=== PATIENT | female | born 1995 | race Caucasian/White ===

== ENCOUNTER → 2018-07-14 17:28 | Outpatient (CLI) | payer OTHER, SELFPAY ==
[2018-07-14 18:02] LABS: Absolute Lymphocyte Count 3.86 X10^3/ul (0.83-4.51); Absolute Neutrophil Count 10.7 X10^3/uL (2.0-7.7); Basophil# 0.02 X10^3/uL; Basophil% 0.1 % (0-1); Eosinophil# 0.05 X10^3/uL; Eosinophils% 0.3 % (0-5); Hematocrit 36.5 % (37-47); Hemoglobin 12.4 g/dl (12.0-15.0); Lymphocyte # 3.86 X10^3/ul (4.0); Lymphocyte % 24.9 % (19-41); Mean Corpuscular Hgb 30.6 pg (27.0-32.0); Mean Corpuscular Volume 90.1 fL (81-99); Mean Platelet Vol. 9.4 fl (6.2-12.0); Monocyte# 0.86 X10^3/uL; Monocyte% 5.5 % (0-10); Neutrophil # 10.67 X10^3/uL (2.7-7.7); Neutrophil % 68.9 % (47-70); POSITIVE COUNT NO; POSITIVE DIFFERENTIAL NO; POSITIVE MORPHOLOGY NO; Platelet Count 310 K/mm3 (150-450); RBC Distribution Width SD 39.3 fl (35.1-43.9); Red Blood Count 4.05 M/mm3 (4.2-5.4); White Blood Count 15.5 K/mm3 (4.4-11.0)
[2018-07-14 20:09] LABS: Chlamydia Trachomatis by PCR Negative (Negative); Neisserai gonorrhoeae by PCR Negative (Negative); Probe Check PASS; Sample Adequacy Control PASS; Specimen Processing Control PASS
[2018-07-15 02:29] LABS: Rapid Plasmin Reagin (RPR) NONREACTIVE (NONREACTIVE)
[2018-07-15 15:20] LABS: HIV - WCH Non-Reactive (Nonreactive); Rubella IgG 57.1 IU/mL
[2018-07-16 13:35] LABS: HEPATITIS B SURFACE AG Negative (Negative)
[2018-07-20 11:28] LABS: HPV Reflexed? NOT INDICATED
== END ==
PROVIDERS: Visit Provider Obstetrics & Gynecology
DX: Z34.90 Encounter for supervision of normal pregnancy, unspecified, unspecified trimester (principal); Z12.4 Encounter for screening for malignant neoplasm of cervix
CPT/HCPCS: 85025; 86592; 86703; 86762; 86850; 86900; 87086; 87088; 87340; 87491; 87591; 88175; G0145

== ENCOUNTER → 2018-10-04 16:09 | Outpatient (CLI) | payer BC, MEDICAID, SELFPAY ==
[2018-10-04 15:18] VITALS: BMI 31.2
[2018-10-08 03:09] LABS: AFP MoM Value 1.17 (.); AFP Value-EIA 48.1 ng/mL (.); Comment Report (.); DIA MoM Value 0.91 (.); DIA Value-EIA 145.12 pg/mL (.); DSR (By Age) 493 (.); DSR (Second Trimester) 7023 (.); Gestational Age 18.4 WEEKS (.); Insulin Dep Diabetes No (.); Maternal Age At EDD 32.4 yr (.); hCG Value 16608 mIU/mL (.)
== END ==
PROVIDERS: Referring Provider Obstetrics & Gynecology; Visit Provider Obstetrics & Gynecology
DX: Z36.9 Encounter for antenatal screening, unspecified (principal)
CPT/HCPCS: 82105; 82677; 84702; 86336

== ENCOUNTER → 2018-12-09 13:56 | Outpatient (CLI) | payer MEDICAID, SELFPAY ==
[2018-12-09 13:32] VITALS: BMI 31.2
[2018-12-09 16:02] LABS: Absolute Lymphocyte Count 2.14 X10^3/ul (0.83-4.51); Basophil# 0.02 X10^3/uL; Basophil% 0.2 % (0-1); Eosinophil# 0.05 X10^3/uL; Eosinophils% 0.5 % (0-5); Hematocrit 35.9 % (37-47); Hemoglobin 11.6 g/dl (12.0-15.0); Lymphocyte # 2.14 X10^3/ul (4.0); Lymphocyte % 19.3 % (19-41); Mean Corp Hgb Conc 32.3 g/gl (32-36); Mean Corpuscular Hgb 29.9 pg (27.0-32.0); Mean Corpuscular Volume 92.5 fL (81-99); Mean Platelet Vol. 10.2 fl (6.2-12.0); Monocyte# 0.73 X10^3/uL; Monocyte% 6.6 % (0-10); Neutrophil # 8.01 X10^3/uL (2.7-7.7); Neutrophil % 72.1 % (47-70); Platelet Count 330 K/mm3 (150-450); RBC Distribution Width CV 12.8 % (11.6-14.6); RBC Distribution Width SD 42.2 fl (35.1-43.9); Red Blood Count 3.88 M/mm3 (4.2-5.4); White Blood Count 11.1 K/mm3 (4.4-11.0)
[2018-12-09 16:03] LABS: POSITIVE COUNT NO; POSITIVE DIFFERENTIAL NO; POSITIVE MORPHOLOGY NO
[2018-12-09 16:32] LABS: Glucose Challenge Gest 1H 50g 129 mg/dL (70-140)
== END ==
PROVIDERS: Referring Provider Obstetrics & Gynecology; Visit Provider Obstetrics & Gynecology
DX: Z34.90 Encounter for supervision of normal pregnancy, unspecified, unspecified trimester (principal)
CPT/HCPCS: 36415; 82950; 85025

== ENCOUNTER → 2019-02-07 17:31 | Outpatient (CLI) | payer MEDICAID, SELFPAY ==
[2019-02-07 16:49] VITALS: BMI 31.2
== END ==
PROVIDERS: Referring Provider Obstetrics & Gynecology; Visit Provider Obstetrics & Gynecology
DX: Z34.93 Encounter for supervision of normal pregnancy, unspecified, third trimester (principal); Z3A.36 36 weeks gestation of pregnancy
CPT/HCPCS: 87077; 87081; 87186

== ENCOUNTER 2019-02-21 16:50 | Outpatient (CLI) | payer MEDICAID, SELFPAY ==
[2019-02-21 16:22] VITALS: BMI 31.2
[2019-02-21 17:09] VITALS: BMI 35.4
--- NOTE | 2019-02-21 17:21 | NURSING ---
pt has had headaches on and off this week, but has not felt the need to take medication for any of them. pt does not have a headache at this time
[2019-02-21 17:44] LABS: Hematocrit 34.6 % (37-47); Hemoglobin 10.9 g/dl (12.0-15.0); Mean Corp Hgb Conc 31.5 g/gl (32-36); Mean Corpuscular Hgb 26.8 pg (27.0-32.0); Mean Platelet Vol. 10.5 fl (6.2-12.0); Platelet Count 262 K/mm3 (150-450); RBC Distribution Width CV 13.7 % (11.6-14.6); RBC Distribution Width SD 42.4 fl (35.1-43.9); Red Blood Count 4.07 M/mm3 (4.2-5.4); Scan Indicated on CBC? Y/N NO; White Blood Count 8.1 K/mm3 (4.4-11.0)
[2019-02-21 17:45] LABS: Protein, Urine (Random) 31.4 mg/dL (<11.9); Protein:Creat Ratio 238 mg/g CRE (0-200)
[2019-02-21 18:15] LABS: AST(SGOT) 21 U/L (15-37); Alanine Aminotransfer ALT/SGPT 15 U/L (13-56); Creatinine, Serum 0.76 mg/dL (0.55-1.02); EST Glomerular Filtration Rate 102 mL/min (>60); Est Glom Filt Rate - Afr Amer 123 mL/min (>60); Estimated Creatinine Clearance 91.83 ml/min; Uric Acid 4.4 mg/dL (2.6-6.0)
[2019-02-21 18:51] LABS: Prothrombin Time (Protime)PT. 12.9 SECONDS (11.7-14.9)
[2019-02-21 18:52] LABS: Partial Thromboplast Time 26.9 Seconds (24.1-36.2)
--- NOTE | 2019-02-22 03:59 | OB.TRI.PN_ITS ---
Progress Notes Date of Service: 02/21/19 Progress Note: NST evaluation secondary to elevated blood pressure in the office Patient denies any headaches blurry vision but had borderline elevated blood pressures in the office initially borderline elevated blood pressures upon presentation to labor and delivery but repeat blood pressures are all within normal limits heart tones 145 moderate variability reactive no decelerations category 1 tracing [place]: Irregular contractions Assessment and plan: Elevated blood pressures Reactive NST reassuring status normal labs and normal blood pressures negative proteinuria follow-up in the office at the end of the week for a blood pressure check Laboratory Studies: Laboratory Tests 02/21/19 02/21/19 02/21/19 Range/Units 17:20 17:20 17:20 WBC 8.1 (4.4-11.0) K/mm3 RBC 4.07 L (4.2-5.4) M/mm3 Hgb 10.9 L (12.0-15.0) g/dl Hct 34.6 L (37-47) % MCV 85.0 (81-99) fL MCH 26.8 L (27.0-32.0) pg MCHC 31.5 L (32-36) g/gl RDW 13.7 (11.6-14.6) % RDW Differential 42.4 (35.1-43.9) fl Plt Count 262 (150-450) K/mm3 MPV 10.5 (6.2-12.0) fl PT 12.9 (11.7-14.9) SECONDS INR 1.0 APTT 26.9 (24.1-36.2) Seconds Creatinine 0.76 (0.55-1.02) mg/dL Estim Creat Clear Calc 91.83 ml/min Est GFR (MDRD) Af Amer 123 (>60) mL/min Est GFR (MDRD) Non-Af 102 (>60) mL/min Uric Acid 4.4 (2.6-6.0) mg/dL AST 21 (15-37) U/L ALT 15 (13-56) U/L U Random Total Protein (<11.9) mg/dL Urine Creatinine (NO RANGE EST.) mg/dL Protein/Creatinin Ratio (0-200) mg/g CRE 02/21/19 Range/Units 17:00 WBC (4.4-11.0) K/mm3 RBC (4.2-5.4) M/mm3 Hgb (12.0-15.0) g/dl Hct (37-47) % MCV (81-99) fL MCH (27.0-32.0) pg MCHC (32-36) g/gl RDW (11.6-14.6) % RDW Differential (35.1-43.9) fl Plt Count (150-450) K/mm3 MPV (6.2-12.0) fl PT (11.7-14.9) SECONDS INR APTT (24.1-36.2) Seconds Creatinine (0.55-1.02) mg/dL Estim Creat Clear Calc ml/min Est GFR (MDRD) Af Amer (>60) mL/min Est GFR (MDRD) Non-Af (>60) mL/min Uric Acid (2.6-6.0) mg/dL AST (15-37) U/L ALT (13-56) U/L U Random Total Protein 31.4 H (<11.9) mg/dL Urine Creatinine 132.00 (NO RANGE EST.) mg/dL Protein/Creatinin Ratio 238 H (0-200) mg/g CRE
== END 2019-02-21 19:00 | disposition home or self-care (01) ==
LOC: WPOUT 16:55 → WP 16:55
PROVIDERS: Referring Provider Obstetrics & Gynecology; Visit Provider Obstetrics & Gynecology
DX: O26.899 Other specified pregnancy related conditions, unspecified trimester (principal); R03.0 Elevated blood-pressure reading, without diagnosis of hypertension; Z3A.00 Weeks of gestation of pregnancy not specified
CPT/HCPCS: 36415; 59025; 59050; 82565; 82570; 84156; 84450; 84460; 84550; 85027; 85610; 85730; 99218; G0378

== ENCOUNTER 2019-02-24 16:40 | Inpatient (IN) | payer MEDICAID, SELFPAY ==
[2019-02-24 13:34] VITALS: BMI 35.4
[2019-02-24 14:09] LABS: Protein, Urine (Random) 40.6 mg/dL (<11.9); Protein:Creat Ratio 205 mg/g CRE (0-200)
[2019-02-24 14:37] VITALS: BMI 35.5
[2019-02-24 14:37] LABS: Hematocrit 33.4 % (37-47); Hemoglobin 10.7 g/dl (12.0-15.0); Mean Corpuscular Hgb 27.2 pg (27.0-32.0); Mean Corpuscular Volume 84.8 fL (81-99); Mean Platelet Vol. 10.7 fl (6.2-12.0); Platelet Count 246 K/mm3 (150-450); RBC Distribution Width CV 13.7 % (11.6-14.6); RBC Distribution Width SD 42.5 fl (35.1-43.9); Red Blood Count 3.94 M/mm3 (4.2-5.4); White Blood Count 7.8 K/mm3 (4.4-11.0)
[2019-02-24 14:38] LABS: Scan Indicated on CBC? Y/N NO
[2019-02-24 14:49] LABS: AST(SGOT) 21 U/L (15-37); Alanine Aminotransfer ALT/SGPT 16 U/L (13-56); Creatinine, Serum 0.68 mg/dL (0.55-1.02); EST Glomerular Filtration Rate 115 mL/min (>60); Est Glom Filt Rate - Afr Amer 139 mL/min (>60); Estimated Creatinine Clearance 102.64 ml/min; Uric Acid 5.2 mg/dL (2.6-6.0)
[2019-02-24 14:52] LABS: Prothrombin Time (Protime)PT. 12.5 SECONDS (11.7-14.9)
[2019-02-24 14:53] LABS: Partial Thromboplast Time 26.2 Seconds (24.1-36.2)
[2019-02-24] MEDS: Lactated Ringers 1,000 ML 50 ML IV ×2 (17:45→20:17)
[2019-02-24] MEDS: 0.9% Normal Saline 100 ML IV.SOLN. INTRA-UTER (19:05)
[2019-02-24] MEDS: Oxytocin 30 units/NS 500 ml 30 UNITS/500 ML IV.SOLN IV (19:09)
--- NOTE | 2019-02-24 19:38 | HP.PCM_ITS ---
- Problem List (1) Gestational hypertension Status: Acute (2) Late deceleration of heart rate Status: Acute (3) Positive GBS test Status: Acute (4) Supervision of normal Status: Acute Qualifiers: Comment: PRR JERI 03/04/19 boy Mayco Kishan (5) Status: Acute Qualifiers: Comment: carrier screening declined. nl quad screen. MFM Anatomy US normal. History Date of Admission: 02/24/19 Final JERI: 03/04/19 Gestational age: 38 Weeks and 6 Days History of this : This is a 23 year-old, at 38 weeks gestational age presents with gestational hypertension. Upon evaluation she also had 3 late decels on the monitor in triage. she denies any bleeding or loss of fluid, admits good fm. she denies any regular ctx. Surgical History: Surgical History (Last Reviewed 02/21/19 @ 16:22 by Naz Hansen) History of bunionectomy Z98.890 Allergies No Known Allergies Allergy (Verified 02/24/19 13:33) Home Medications: Home Medications ondansetron HCl 4 mg tablet 4 mg PO Q6H PRN #60 tab 07/22/18 vitamin#30 30 mg iron-10 mg iron-folic acid 1 mg-omg3 capsule 2 cap PO DAILY cap 10/04/18 Smoking Status: Former smoker Alcohol: None Number of Fetus(es): 1 Heart Tracin moderate variability reactive no decelerations category I tracing, initial cat II with 3 late decels [place]: irregular History Past Pregnancies: Past Pregnancies Delivery Date Name GA/Weeks Outcome Route Weight Gender Labor Length Anesthesia Delivery Location Provider FOB Labs: Mom's Current Diagnoses Unspecified maternal hypertension, unspecified trimester 02/24/19 Mom[facility] Labs & Results 02/24/19 02/24/19 02/24/19 13:55 14:25 14:25 WBC 7.8 RBC 3.94 L Hgb 10.7 L Hct 33.4 L MCV 84.8 MCH 27.2 MCHC 32.0 RDW 13.7 RDW Differential 42.5 Plt Count 246 MPV 10.7 PT 12.5 INR 1.0 APTT 26.2 Creatinine Estim Creat Clear Calc Est GFR (MDRD) Af Amer Est GFR (MDRD) Non-Af Uric Acid AST ALT U Random Total Protein 40.6 H Urine Creatinine 198.00 Protein/Creatinin Ratio 205 H 02/24/19 14:25 WBC RBC Hgb Hct MCV MCH MCHC RDW RDW Differential Plt Count MPV PT INR APTT Creatinine 0.68 Estim Creat Clear Calc 102.64 Est GFR (MDRD) Af Amer 139 Est GFR (MDRD) Non-Af 115 Uric Acid 5.2 AST 21 ALT 16 U Random Total Protein Urine Creatinine Protein/Creatinin Ratio Course Did the patient receive Yes care? Labs Blood Type: O RH: POSITIVE RPR/VDRL/Syphilis Nonreactive Rubella status Immune HbSAg Negative Date Done: 07/14/18 Chlamydia Negative Gonorrhea Negative HIV/AIDS Non-Reactive Group B Strep: Positive Current Obstetrical History Gestational Diabetes No Incompetent Cervix No Infertility No IUGR No Macrosomia No Hypertension/Pre-eclampsia Yes Placenta Previa/Abruption No PTL/PROM No Uterine anomaly No Oligohydramnios No Polyhydramnios No Multiple gestation No Past Medical History Asthma No Diabetes No Hypertension No Heart disease No Mitral valve prolapse No Neurologic/Seizure disorder/ No Migraines Kidney disease No Liver disease No Varicosities No Clotting disorders/Hx of DVT No Thyroid Dysfunction No Psychiatric disorders Yes: ADHD in childhood Major trauma No Abnormal PAP smear Yes: Positive for trichomosis Sleep apnea No Mammogram in the last 2 years No Social History Marital Status: SINGLE Alleged father Jean-Claude Osullivan Smoking Yes Smoking Status Former smoker Expected Infant Delivery Method: Spontaneous Vaginal Review of Systems Constitutional: Denies: Fever, Malaise Eyes: Denies: Blurred vision, Vision Change HEENT: Denies: Head Aches, Visual Changes Cardiovascular: Denies: Chest Pain, Palpitations Respiratory: Denies: Cough, Shortness of Breath, Wheezing Gastrointestinal: Denies: Abdominal Pain, Diarrhea, Nausea, Vomiting Genitourinary: Denies: Dysuria, Hematuria Musculoskeletal: Denies: Joint Pain, Muscle pain Skin: Denies: Lesions, Rash Neurological: Denies: Blurred vision, Focal weakness, Headaches Psychiatric: Denies: Anxiety, Depression Endocrine: Denies: Heat/ Cold Intolerance Hematologic/ Lymphatic: Denies: Easy Bruising, Easy Bleeding Physical Exam General: Alert, Cooperative, No apparent distress HEENT: Atraumatic, Normocephalic. Negative for: Thyromegaly, Lymphadenopathy Cardiovascular: Tachycardic Lungs: Normal air movement Abdomen: Soft, Non Tender, Gravid Neurological: Deep Tendon Reflexes 2+/4 and Symmetrical, Neuro grossly intact. Negative for: Clonus KITCHEN STEWARD/STEWARDESS: Normal external genitalia. Negative for: Vulvar lesions Estimated gestational size: Appropriate for gestational size Presentation: Cephalic Assessment/Plan All Active Problems (Last Reviewed 02/24/19 @ 13:34 by Naz Hansen) Gestational hypertension (Acute) Late deceleration of heart rate (Acute) Positive GBS test (Acute) Supervision of normal (Acute) (Acute) This is a 23 year-old, at 38 weeks gestational age presents with GHTN and decel for IOL Patient presents IOL, plan management for , pitocin/AROM after garcia bulb. Pain management: plans epidural. GBS positive- PCN. Management of any complications: GHTN- normal labs, mildly elevated. decels- resolve dnow, plan IOL. I have reviewed the [facility] and made any clinically relevant updates.
[2019-02-24] MEDS: fentaNYL-bupivacaine (epidural) 100 ML BAG EPIDURAL (21:32)
[2019-02-24] MEDS: Sodium Chloride 0.65% 1 SPRAY SPRAY.BTL 2 SPRAY NASAL (23:36)
[2019-02-25] MEDS: Lactated Ringers 1,000 ML 50 ML IV (00:32)
[2019-02-25] MEDS: fentaNYL-bupivacaine (epidural) 100 ML BAG EPIDURAL (02:07)
[2019-02-25] MEDS: 0.9% Saline Lock 10 ML Syringe IV ×2 (03:39→07:19)
--- NOTE | 2019-02-25 05:04 | OP.PCM_ITS ---
Problem List (1) Gestational hypertension Status: Acute (2) Late deceleration of heart rate Status: Acute (3) Positive GBS test Status: Acute (4) Supervision of normal Status: Acute Qualifiers: Comment: PRR JERI 03/04/19 kanika Mao Kishan (5) Status: Acute Qualifiers: Comment: carrier screening declined. nl quad screen. MFM Anatomy US normal. Vaginal Delivery Maternal Presentation: Medically Indicated Induction iol 39 weeks ghtn and heart rate decel Method of Induction: Pitocin, Whelan Bulb Amniotic Membrane Rupture Type: Spontaneous Amniotic Fluid Description: Clear Final JERI: 03/04/19 Gestational age: 39 Weeks and 0 Days Date of Procedure: 02/25/19 Pre-Operative Diagnosis: ghtn and decel Post-Operative Diagnosis: same Surgery/ Procedure Performed: Spontaneous Vaginal Delivery Type of Anesthesia: Epidural Description of Procedure: Patient began pushing and delivered the head in the CHAPARRITA presentation. The head was delivered atraumatically . The anterior and posterior shoulders delivered without complication followed by the rest of the infant and the was placed on the maternal abdomen. Delayed cord clamping was employed for approximately 60 seconds. Cord was clamped and cut and gentle traction was applied to the cord and the placenta delivered spontaneously immediately following it was noted to be intact with three-vessel cord. The perineum and vagina were inspected and noted to have a small first-degree perineal laceration was repaired in the usual fashion with 3-0 Vicryl Rapide. EBL was 200 cc. Sheeba ent and infant tolerated delivery well. Presentation: [place]APARRITA Placental Delivery Description: Spontaneous Placenta Disposition: [facility] Cord Entanglement: None Estimated Blood Loss: 200 Infant A gender: Male Episiotomy Description: None Laceration: None Medications given after delivery: IV Pitocin Complications: None
[2019-02-25] MEDS: Oxytocin 30 units/NS 500 ml 30 UNITS/500 ML IV.SOLN 334 UNITS IV (05:20)
[2019-02-25] MEDS: Oxytocin 30 units/NS 500 ml 30 UNITS/500 ML IV.SOLN 167 UNITS IV (05:50)
[2019-02-25] MEDS: Acetaminophen 650 MG/20 ML UDC 1000 MG PO ×3 (05:59→21:43)
[2019-02-25 10:15] VITALS: BP 115/76; PULSE 99; RESP 16; TEMP 36.6
[2019-02-25 12:30] VITALS: BP 141/88; PULSE 96; RESP 16; TEMP 36.4
[2019-02-25 16:00] VITALS: BP 148/87; PULSE 81; RESP 16; TEMP 36.8
[2019-02-25 19:50] VITALS: BP 141/88; PULSE 84; RESP 16; TEMP 36.4
[2019-02-26 01:35] VITALS: BP 138/78; PULSE 88; RESP 16; TEMP 36.7
[2019-02-26] MEDS: Ibuprofen 100 MG/5 ML UDC 600 MG PO ×2 (02:42→17:26)
[2019-02-26 05:15] VITALS: BP 126/78; PULSE 78; RESP 16; TEMP 36.7
--- NOTE | 2019-02-26 08:03 | PCM.PN.OB ---
Patient Problems: Active and Suspected Problems (Last Reviewed 02/24/19 @ 13:34 by Naz Hansen) Gestational hypertension (Acute) Late deceleration of heart rate (Acute) Subjective: doing well no complaints pain controlled no CP SOB N V ambulating well tolerating po lochia moderate, going well - Physical Exam General: Alert, Oriented x3 Abdomen: Soft, Non Tender, - - FF below U Vital Signs Temp Pulse Resp BP 98.0 F 78 16 126/78 H 02/26/19 05:15 02/26/19 05:15 02/26/19 05:15 02/26/19 05:15 Oxygen Delivery Method Room Air Weight: 194 lb 3.636 oz Body Mass Index (BMI) 35.5 Intake and Output for Last 24 Hours 02/24/19 02/25/19 02/26/19 23:59 23:59 23:59 Intake Total 1755 / 1755 1679 / 1679 Output Total 150 / 150 2130 / 2130 Balance 1605 / 1605 -451 / -451 Medical Necessity - Tobacco Use Smoking Status: Former smoker Assessment/Plan All Active Problems (Last Reviewed 02/24/19 @ 13:34 by Naz Hansen) Gestational hypertension (Acute) Late deceleration of heart rate (Acute) Positive GBS test (Acute) Supervision of normal (Acute) (Acute) s/p PPD # 1 1. routine post delivery care 2. breast feeding- support given 3. rh positive 4. rubella immune 5. BP normal
[2019-02-26 08:34] VITALS: BP 130/80; PULSE 86; RESP 16; TEMP 36.2
[2019-02-26 12:48] VITALS: BP 124/88; PULSE 89; RESP 16; TEMP 36.7
--- NOTE | 2019-02-26 16:55 | NURSING ---
Patient set up with pump, taught how to assemble and use pump, also how to clean and disinfect pump parts. Patient and FOB verbalize understanding of teaching. Larisa in notified of pt using pump and is in to see her.
[2019-02-26 18:03] VITALS: BP 145/91; PULSE 82; RESP 16; TEMP 36.4
[2019-02-26 20:00] VITALS: BP 134/84; PULSE 83; RESP 18; TEMP 36.8
[2019-02-27 01:30] VITALS: BP 139/92; PULSE 91; RESP 18; TEMP 36.2
[2019-02-27 01:33] VITALS: BP 140/81
--- NOTE | 2019-02-27 08:00 | PCM.PN.OB ---
Patient Problems: Active and Suspected Problems (Last Reviewed 02/24/19 @ 13:34 by Naz Hansen) Gestational hypertension (Acute) Late deceleration of heart rate (Acute) Subjective: doing well no complaints pain controlled no CP SOB N V ambulating well tolerating po lochia moderate, pumping and feeding at this time - Physical Exam General: Alert, Oriented x3 Abdomen: Soft, Non Tender, Non-Distended, - - FF below U Vital Signs Temp Pulse Resp BP 97.1 F L 91 18 140/81 H 02/27/19 01:30 02/27/19 01:30 02/27/19 01:30 02/27/19 01:33 Oxygen Delivery Method Room Air Weight: 194 lb 3.636 oz Body Mass Index (BMI) 35.5 Intake and Output for Last 24 Hours 02/25/19 02/26/19 02/27/19 23:59 23:59 23:59 Intake Total 1679 / 1679 Output Total 2130 / 2130 Balance -451 / -451 Medical Necessity - Tobacco Use Smoking Status: Former smoker Assessment/Plan All Active Problems (Last Reviewed 02/24/19 @ 13:34 by aNz Hansen) Gestational hypertension (Acute) Late deceleration of heart rate (Acute) Positive GBS test (Acute) Supervision of normal (Acute) (Acute) s/p PPD # 2 1. routine post delivery care 2. breast feeding- support given 3. rh positive 4. rubella immune 5. Home today 6. BP check in office in 1 week
--- NOTE | 2019-02-27 08:03 | DCINST_ITS ---
Allergies/Adverse Reactions: Allergies No Known Allergies Allergy (Verified 02/24/19 13:33) Medications to take at Discharge ondansetron HCl 4 mg tablet 4 mg PO Q6H PRN #60 tab 07/22/18 vitamin#30 30 mg iron-10 mg iron-folic acid 1 mg-omg3 capsule 2 cap PO DAILY cap 10/04/18 Primary Care Physician: Care Physician,No Primary [Primary Care Provider] - Test Results: Test results from this visit will be discussed in further detail at your follow- up appointment, if applicable.
[2019-02-27 09:37] VITALS: BP 132/86; PULSE 83; RESP 20; TEMP 36.4
== END 2019-02-27 09:30 | disposition home or self-care (01) | DRG 560 ==
LOC: WPOUT 16:51 → WP 02-25 05:24
PROVIDERS: Nurse Practitioner Women's Health; Admitting Provider Obstetrics & Gynecology; Referring Provider Obstetrics & Gynecology; Visit Provider Obstetrics & Gynecology
DX: O16.4 Unspecified maternal hypertension, complicating childbirth (principal); O99.824 Streptococcus B carrier state complicating childbirth; O70.0 First degree perineal laceration during delivery; O76 Abnormality in fetal heart rate and rhythm complicating labor and delivery; Z87.891 Personal history of nicotine dependence; Z3A.38 38 weeks gestation of pregnancy; Z37.0 Single live birth
CPT/HCPCS: 36415; 59025; 59050; 82565; 82570; 84156; 84450; 84460; 84550; 85027; 85610; 85730; 86850; 86900; 99218; J7120; A4216; G0378

== ENCOUNTER → 2019-11-02 15:51 | Outpatient (CLI) | payer MEDICAID, SELFPAY ==
[2019-04-11 14:39] VITALS: BMI 35.5
[2019-11-02 17:32] LABS: Hemoglobin A1c 5.1 % (4.2-6.3)
[2019-11-02 17:34] LABS: Follicle Stimulating Hormone 6.1 mIU/mL; Prolactin 15.7 ng/mL; Thyroid Stim Hormone (TSH) 1.37 uIU/mL (0.358-3.74)
[2019-11-05 04:06] LABS: DHEA Sulfate 245.2 ug/dL (110.0-431.7)
[2019-11-05 11:08] LABS: Testosterone Free 1.8 pg/mL (0.0-4.2)
[2019-11-08 11:41] LABS: 17-Hydroxyprogesterone 47 ng/dL (.)
== END ==
PROVIDERS: Referring Provider Nurse Practitioner Women's Health; Visit Provider Nurse Practitioner Women's Health
DX: N91.2 Amenorrhea, unspecified (principal)
CPT/HCPCS: 36415; 82627; 83001; 83036; 83498; 84146; 84402; 84443; 82626

== ENCOUNTER → 2019-11-15 13:15 | Outpatient (CLI) | payer MEDICAID, SELFPAY ==
[2019-04-11 14:39] VITALS: BMI 35.5
--- NOTE | 2019-11-15 13:18 | US_ITS ---
STUDY: ULTRASOUND TRANSVAGINAL CLINICAL: Female, 24 years old. AMENORRHEA X 8 MONTHS TECHNIQUE: Transvaginal real-time exam with crowder scale image documentation. COMPARISON: None. FINDINGS: Normal uterine size measuring 7.7 cm in maximal craniocaudal dimension. There are no myometrial masses. Normal endometrial thickness measuring 11 mm. There are no endometrial masses, and there is no fluid in the endometrial cavity. The endometrium is hyperechoic. Normal uterine cervix. Small amount of anechoic fluid in the endocervix. Normal right ovary, measuring 3.1 x 3.1 x 2.2 cm. There are multiple follicles without a dominant cyst. Normal Doppler flow. Normal left ovary, measuring 2.8 x 2.9 x 1.7 cm. There are multiple follicles without a dominant cyst. Normal Doppler flow. Minimal free fluid. Polycystic ovary disease: No. US/Transvaginal Non- IMPRESSION: Normal female pelvis. Electronically Signed: Mona Mo MD at 16:02 EST , Service support ,
--- NOTE | 2019-11-15 13:18 | US_ITS ---
STUDY: ULTRASOUND TRANSVAGINAL CLINICAL: Female, 24 years old. AMENORRHEA X 8 MONTHS TECHNIQUE: Transvaginal real-time exam with crowder scale image documentation. COMPARISON: None. FINDINGS: Normal uterine size measuring 7.7 cm in maximal craniocaudal dimension. There are no myometrial masses. Normal endometrial thickness measuring 11 mm. There are no endometrial masses, and there is no fluid in the endometrial cavity. The endometrium is hyperechoic. Normal uterine cervix. Small amount of anechoic fluid in the endocervix. Normal right ovary, measuring 3.1 x 3.1 x 2.2 cm. There are multiple follicles without a dominant cyst. Normal Doppler flow. Normal left ovary, measuring 2.8 x 2.9 x 1.7 cm. There are multiple follicles without a dominant cyst. Normal Doppler flow. Minimal free fluid. Polycystic ovary disease: No. US/Pelvic (Non ) IMPRESSION: Normal female pelvis. Electronically Signed: Mona Mo MD at 16:02 EST , Service support ,
== END ==
PROVIDERS: Referring Provider Nurse Practitioner Women's Health; Visit Provider Nurse Practitioner Women's Health
DX: N91.2 Amenorrhea, unspecified (principal)
CPT/HCPCS: 76830; 76856; 93976

== ENCOUNTER → 2019-11-16 14:22 | Outpatient (CLI) | payer MEDICAID, SELFPAY ==
[2019-04-11 14:39] VITALS: BMI 35.5
== END ==
PROVIDERS: Visit Provider Nurse Practitioner Women's Health
DX: N91.2 Amenorrhea, unspecified (principal)
CPT/HCPCS: 36415; 82670

== ENCOUNTER → 2019-12-26 | Outpatient (CLI) | payer MEDICAID, SELFPAY ==
[2019-12-26 15:28] VITALS: BMI 35.5
== END | disposition home or self-care (01) ==
LOC: LABSPEC 16:09
PROVIDERS: Referring Provider Nurse Practitioner Women's Health; Visit Provider Nurse Practitioner Women's Health
DX: R30.0 Dysuria (principal)
CPT/HCPCS: 87086; 87088

== ENCOUNTER → 2020-08-20 14:54 | Outpatient (CLI) | payer MEDICAID, SELFPAY ==
[2019-12-26 15:28] VITALS: BMI 35.5
[2020-08-20 16:00] LABS: hCG Titer Quant., Serum 6583 mIU/mL (1-3)
== END ==
PROVIDERS: Referring Provider Obstetrics & Gynecology; Visit Provider Obstetrics & Gynecology
DX: N91.2 Amenorrhea, unspecified (principal)
CPT/HCPCS: 36415; 84702

== ENCOUNTER → 2020-09-19 | Outpatient (CLI) | payer MEDICAID, SELFPAY ==
[2020-09-19 15:44] VITALS: BMI 33.1
[2020-09-19 17:37] LABS: Amphetamine Urine VISTA NEGATIVE (<1000 ng/mL); Barbiturate Urine VISTA NEGATIVE (< 200 ng/mL); Benzodiazepine Urine VISTA NEGATIVE (< 200 ng/mL); Cocaine Urine VISTA NEGATIVE (< 300 ng/mL); Ecstacy Urine VISTA NEGATIVE (< 500 ng/mL); Methadone Urine VISTA NEGATIVE (< 300 ng/mL); PCP Urine VISTA NEGATIVE (< 25 ng/mL); THC Urine VISTA NEGATIVE (< 50 ng/mL); Vista UDS pH Range 5
[2020-09-24 04:09] LABS: Chlamydia By Nucleic Acid AMP Negative (Negative)
[2020-09-24 11:57] LABS: Gonococcus By Nucleic Acid AMP Negative (Negative)
== END | disposition home or self-care (01) ==
PROVIDERS: Visit Provider Obstetrics & Gynecology
DX: Z34.80 Encounter for supervision of other normal pregnancy, unspecified trimester (principal)
CPT/HCPCS: 80307; 87086; 87088; 87491; 87591

== ENCOUNTER → 2020-09-24 14:52 | Outpatient (CLI) | payer MEDICAID, SELFPAY ==
[2020-09-19 15:44] VITALS: BMI 33.1
[2020-09-24 15:29] LABS: Absolute Lymphocyte Count 2.64 X10^3/uL (0.83-4.51); Absolute Neutrophil Count 6.2 X10^3/uL (2.0-7.7); Basophil# 0.03 X10^3/uL; Basophil% 0.3 % (0-1); Eosinophil# 0.03 X10^3/uL; Eosinophils% 0.3 % (0-5); Hematocrit 40.1 % (37-47); Hemoglobin 13.5 g/dL (12.0-15.0); Lymphocyte # 2.64 X10^3/ul (4.0); Lymphocyte % 27.6 % (19-41); Mean Corp Hgb Conc 33.7 g/dL (32-36); Mean Corpuscular Hgb 30.1 pg (27.0-32.0); Mean Corpuscular Volume 89.3 fL (81-99); Mean Platelet Vol. 9.3 fl (6.2-12.0); Monocyte# 0.63 X10^3/uL; Monocyte% 6.6 % (0-10); NRBC Flagged by Analyzer 0 % (0-5); Neutrophil % 64.7 % (47-70); Platelet Count 306 K/mm3 (150-450); RBC Distribution Width CV 11.8 % (11.6-14.6); RBC Distribution Width SD 38.3 fl (35.1-43.9); Red Blood Count 4.49 M/mm3 (4.2-5.4); White Blood Count 9.6 K/mm3 (4.4-11.0)
[2020-09-24 15:49] LABS: Glucose Challenge Gest 1H 50g 103 mg/dL (70-140)
[2020-09-24 16:38] LABS: HIV - WCH Non-Reactive (Nonreactive); Hepatitis B Surface Antigen Non-Reactive (Nonreactive); Hepatitis C Antibody Non-Reactive (Nonreactive); Rubella IgG Reactive (Nonreactive)
[2020-09-24 17:18] LABS: NATERA MAILED SPECIMEN
[2020-09-26 05:07] LABS: Rapid Plasmin Reagin (RPR) NONREACTIVE (NONREACTIVE)
== END ==
PROVIDERS: Obstetrics & Gynecology; Referring Provider Obstetrics & Gynecology; Visit Provider Obstetrics & Gynecology
DX: O99.210 Obesity complicating pregnancy, unspecified trimester (principal); Z3A.00 Weeks of gestation of pregnancy not specified
CPT/HCPCS: 36415; 82950; 85025; 86592; 86703; 86762; 86803; 86850; 86900; 86901; 87340

== ENCOUNTER → 2020-10-15 | Outpatient (CLI) | payer MEDICAID, SELFPAY ==
[2020-09-19 15:44] VITALS: BMI 33.1
== END | disposition home or self-care (01) ==
LOC: LABSPEC 17:30
PROVIDERS: Referring Provider Obstetrics & Gynecology; Visit Provider Obstetrics & Gynecology
DX: Z03.818 Encounter for observation for suspected exposure to other biological agents ruled out (principal)
CPT/HCPCS: 87635; C9803; U0003

== ENCOUNTER → 2020-10-21 | Outpatient (CLI) | payer MEDICAID, SELFPAY ==
[2020-10-21 13:25] VITALS: BMI 32.9
== END | disposition home or self-care (01) ==
LOC: LABSPEC 16:17
PROVIDERS: Referring Provider Obstetrics & Gynecology; Visit Provider Obstetrics & Gynecology
DX: N89.8 Other specified noninflammatory disorders of vagina (principal)
CPT/HCPCS: 87070; 87205

== ENCOUNTER → 2020-11-15 16:06 | Outpatient (CLI) | payer MEDICAID, SELFPAY ==
[2020-11-15 15:25] VITALS: BMI 33.0
== END ==
PROVIDERS: Referring Provider Obstetrics & Gynecology; Visit Provider Obstetrics & Gynecology
DX: Z36.9 Encounter for antenatal screening, unspecified (principal)
CPT/HCPCS: 36415

== ENCOUNTER → 2021-01-10 15:43 | Outpatient (CLI) | payer MEDICAID, SELFPAY ==
[2021-01-10 15:26] VITALS: BMI 36.1
[2021-01-10 16:51] LABS: Absolute Lymphocyte Count 2.39 X10^3/uL (0.83-4.51); Absolute Neutrophil Count 7.7 X10^3/uL (2.0-7.7); Basophil# 0.02 X10^3/uL; Basophil% 0.2 % (0-1); Eosinophil# 0.04 X10^3/uL; Eosinophils% 0.4 % (0-5); Hematocrit 34.5 % (37-47); Hemoglobin 11.6 g/dL (12.0-15.0); Lymphocyte # 2.39 X10^3/ul (4.0); Lymphocyte % 21.9 % (19-41); Mean Corp Hgb Conc 33.6 g/dL (32-36); Mean Corpuscular Hgb 30.2 pg (27.0-32.0); Mean Corpuscular Volume 89.8 fL (81-99); Mean Platelet Vol. 9.8 fl (6.2-12.0); Monocyte# 0.63 X10^3/uL; Monocyte% 5.8 % (0-10); NRBC Flagged by Analyzer 0 % (0-5); Neutrophil # 7.74 X10^3/uL (2.7-7.7); Neutrophil % 70.9 % (47-70); Platelet Count 327 K/mm3 (150-450); RBC Distribution Width CV 12.8 % (11.6-14.6); RBC Distribution Width SD 41.1 fl (35.1-43.9); Red Blood Count 3.84 M/mm3 (4.2-5.4); White Blood Count 10.9 K/mm3 (4.4-11.0)
[2021-01-10 17:05] LABS: Protein, Urine (Random) 76.3 mg/dL (<11.9); Protein:Creat Ratio 284 mg/g CRE (0-200)
[2021-01-10 17:09] LABS: Glucose Challenge Gest 1H 50g 124 mg/dL (70-140)
[2021-01-10 17:16] LABS: ALB/GLOB Ratio 0.6 RATIO (0.9-2.4); AST(SGOT) 17 U/L (15-37); Alanine Aminotransfer ALT/SGPT 14 U/L (13-56); Albumin, Serum 2.9 g/dL (3.2-5.0); Alkaline Phosphatase 93 U/L (45-117); Anion Gap 10 (5-15); BUN 6 mg/dL (7-18); Chloride 105 mmol/L (98-107); Creatinine, Serum 0.67 mg/dL (0.55-1.02); EST Glomerular Filtration Rate 115 mL/min (>60); Est Glom Filt Rate - Afr Amer 139 mL/min (>60); Globulin 4.6 g/dL (2.2-4.2); Glucose 122 mg/dL (74-106); Protein, Total 7.5 g/dL (6.4-8.2); Sodium Level 137 mmol/L (136-145)
== END ==
PROVIDERS: Obstetrics & Gynecology; Referring Provider Obstetrics & Gynecology; Visit Provider Obstetrics & Gynecology
DX: Z34.90 Encounter for supervision of normal pregnancy, unspecified, unspecified trimester (principal); Z13.1 Encounter for screening for diabetes mellitus
CPT/HCPCS: 36415; 80053; 82570; 82950; 84156; 85025

== ENCOUNTER → 2021-02-21 | Outpatient (CLI) | payer MEDICAID, SELFPAY ==
[2021-02-21 15:12] VITALS: BMI 34.5
[2021-02-21 17:28] LABS: Protein, Urine (Random) 31.4 mg/dL (<11.9); Protein:Creat Ratio 221 mg/g CRE (0-200)
== END | disposition home or self-care (01) ==
LOC: LABSPEC 16:26
PROVIDERS: Referring Provider Obstetrics & Gynecology; Visit Provider Obstetrics & Gynecology
DX: O14.90 Unspecified pre-eclampsia, unspecified trimester (principal); Z3A.00 Weeks of gestation of pregnancy not specified
CPT/HCPCS: 82570; 84156

== ENCOUNTER → 2021-03-21 | Outpatient (CLI) | payer MEDICAID, SELFPAY ==
[2021-03-21 15:50] VITALS: BMI 34.5
== END | disposition home or self-care (01) ==
LOC: LABSPEC 16:49
PROVIDERS: Visit Provider Obstetrics & Gynecology
DX: Z34.80 Encounter for supervision of other normal pregnancy, unspecified trimester (principal)
CPT/HCPCS: 87077; 87081; 87186

== ENCOUNTER 2021-03-28 16:10 | Outpatient (CLI) | payer MEDICAID, SELFPAY ==
[2021-03-28] VITALS (10 sets, daily range): BP systolic 123–137; BP diastolic 74–83; PULSE 57–85; TEMP 36.6–36.9; O2SAT 98–100; BMI 35.7
[2021-03-28 17:07] LABS: Protein, Urine (Random) 27.9 mg/dL (<11.9); Protein:Creat Ratio 296 mg/g CRE (0-200)
[2021-03-28 17:30] LABS: Hematocrit 28.2 % (37-47); Hemoglobin 8.8 g/dL (12.0-15.0); Mean Corp Hgb Conc 31.2 g/dL (32-36); Mean Corpuscular Hgb 25.5 pg (27.0-32.0); Mean Corpuscular Volume 81.7 fL (81-99); Platelet Count 220 K/mm3 (150-450); RBC Distribution Width CV 13.7 % (11.6-14.6); RBC Distribution Width SD 40.5 fl (35.1-43.9); Red Blood Count 3.45 M/mm3 (4.2-5.4); White Blood Count 7.6 K/mm3 (4.4-11.0)
[2021-03-28 17:52] LABS: AST(SGOT) 17 U/L (15-37); Alanine Aminotransfer ALT/SGPT 9 U/L (13-56); Creatinine, Serum 0.56 mg/dL (0.55-1.02); EST Glomerular Filtration Rate 141 mL/min (>60); Est Glom Filt Rate - Afr Amer 171 mL/min (>60); Estimated Creatinine Clearance 122.52 ml/min; Uric Acid 4.3 mg/dL (2.6-6.0)
[2021-03-29 00:47] VITALS: PULSE 87; O2SAT 98
[2021-03-29 00:49] VITALS: BP 122/68; PULSE 89; TEMP 36.2; O2SAT 98
--- NOTE | 2021-03-30 22:18 | OB.TRI.PN ---
Progress Notes Date of Service: 03/28/21 Progress Note: Patient presents for triage evaluation secondary to elevated BP and intermittent headaches. No SOLANO on arrival. BPs normal. PreE labs normal. FHT: Moderate variability reactive no decelerations category I tracing [place]: Irregular Contractions Assessment and plan: Reactive NST, reassuring maternal and status patient discharged to home to follow-up at next scheduled visit. See problem list details for additional plan information. Laboratory Studies: Laboratory Tests 03/28/21 03/28/21 03/28/21 Range/Units 17:02 17:02 16:00 WBC 7.6 (4.4-11.0) K/mm3 RBC 3.45 L (4.2-5.4) M/mm3 Hgb 8.8 L (12.0-15.0) g/dL Hct 28.2 L (37-47) % MCV 81.7 (81-99) fL MCH 25.5 L (27.0-32.0) pg MCHC 31.2 L (32-36) g/dL RDW Std Deviation 40.5 (35.1-43.9) fl RDW Coeff of Anastacio 13.7 (11.6-14.6) % Plt Count 220 (150-450) K/mm3 MPV 11.0 (6.2-12.0) fl Creatinine 0.56 (0.55-1.02) mg/dL Estim Creat Clear Calc 122.52 ml/min Est GFR (MDRD) Af Amer 171 (>60) mL/min Est GFR (MDRD) Non-Af 141 (>60) mL/min Uric Acid 4.3 (2.6-6.0) mg/dL AST 17 (15-37) U/L ALT 9 L (13-56) U/L U Random Total Protein 27.9 H (<11.9) mg/dL Urine Creatinine 94.30 (NO RANGE EST.) mg/dL Protein/Creatinin Ratio 296 H (0-200) mg/g CRE Procedures Urinary/Genital [id number]: [id number] non-stress test Interp
== END 2021-03-28 18:23 | disposition home or self-care (01) ==
LOC: WPOUT 16:16 → WP 16:17
PROVIDERS: Referring Provider Obstetrics & Gynecology; Visit Provider Obstetrics & Gynecology
DX: O26.899 Other specified pregnancy related conditions, unspecified trimester (principal); R51.9 Headache, unspecified; R03.0 Elevated blood-pressure reading, without diagnosis of hypertension; Z3A.00 Weeks of gestation of pregnancy not specified
CPT/HCPCS: 36415; 59025; 59050; 82565; 82570; 84156; 84450; 84460; 84550; 85027; 99218; G0378

== ENCOUNTER 2021-04-01 22:05 | Inpatient (IN) | payer MEDICAID, SELFPAY ==
[2021-03-28 16:21] VITALS: BMI 35.7
[2021-04-01] VITALS (7 sets, daily range): BP systolic 133–146; BP diastolic 86–93; PULSE 67–93; TEMP 36.7; O2SAT 98; BMI 35.0
[2021-04-01] MEDS: 0.9% Saline Lock 10 ML Syringe IV (20:55)
[2021-04-01 21:02] LABS: Color, Urine Yellow (Yellow); Glucose, Dipstick Normal (Normal); Ketone-Dipstick Negative (Negative); Leukocyte Esterase-Dipstick 25 /ul (Negative); Nitrite-Dipstick Negative (Negative); Occult Blood-Urine Negative /ul (Negative); Protein-Dipstick 15 mg/dl (Negative); Specific Gravity, Urine 1.015 (1.002-1.030); Urine Bilirubin Dipstick Negative (Negative); Urine Clarity Cloudy (Clear); Urine Urobilinogen Normal (Normal)
[2021-04-01 21:04] LABS: Hematocrit 30.1 % (37-47); Hemoglobin 9.4 g/dL (12.0-15.0); Mean Corp Hgb Conc 31.2 g/dL (32-36); Mean Corpuscular Hgb 25.3 pg (27.0-32.0); Mean Corpuscular Volume 81.1 fL (81-99); Platelet Count 242 K/mm3 (150-450); RBC Distribution Width CV 13.8 % (11.6-14.6); RBC Distribution Width SD 40.2 fl (35.1-43.9); Red Blood Count 3.71 M/mm3 (4.2-5.4); White Blood Count 10.5 K/mm3 (4.4-11.0)
[2021-04-01 21:09] LABS: Protein, Urine (Random) 42.4 mg/dL (<11.9); Protein:Creat Ratio 294 mg/g CRE (0-200)
[2021-04-01 21:16] LABS: Prothrombin Time (Protime)PT. 12.8 SECONDS (11.7-14.9)
[2021-04-01 21:17] LABS: Partial Thromboplast Time 25.6 Seconds (24.1-36.2)
[2021-04-01 21:24] LABS: AST(SGOT) 18 U/L (15-37); Alanine Aminotransfer ALT/SGPT 10 U/L (13-56); EST Glomerular Filtration Rate 130 mL/min (>60); Est Glom Filt Rate - Afr Amer 157 mL/min (>60); Estimated Creatinine Clearance 114.35 ml/min; Uric Acid 4.1 mg/dL (2.6-6.0)
[2021-04-01] MEDS: miSOPROStol 25 MCG TABLET VAGINAL (23:06)
[2021-04-02] VITALS (80 sets, daily range): BP systolic 122–156; BP diastolic 70–96; PULSE 54–93; RESP 16; TEMP 36.4–37.1; O2SAT 92–100
--- NOTE | 2021-04-02 03:28 | HP.PCM.OB_ITS ---
HPI - General General Date of Admission: 04/01/21 HPI Narrative ROSSY LUCIANO, is a 25 F G2, P1 at 38 weeks who presents with elevated blood pressures at home and was admitted for induction of labor for gestational hypertension Maternal Data Information JERI Calculator Estimated Delivery Date Method Current WG Current Estimate 04/16/21 Ultrasound #1 38w 0d Other Estimates 04/09/21 LMP (Uncertain) 39w 0d PFS Medical History (Updated 04/02/21 @ 03:[address] Lu Blake MD) Anxiety Depression Gestational HTN Pre-eclampsia Home Medications multivitamin no.47-iron fum 27 mg-folate no.1 1 mg-dha 300 mg capsule 1 cap PO DAILY 09/11/20 [History Last Taken 03/31/21 21:00] sertraline [Zoloft] 50 mg PO QDAY 03/28/21 [History Last Taken 03/31/21 21:00] Allergy/AdvReac Type Severity Reaction Status Date / Time No Known Allergies Allergy Verified 04/01/21 20:32 Family History Grandfather Cancer Surgical History (Updated 04/01/21 @ 22:37 by Adeline Zepeda) History of bunionectomy History of surgery Social History Smoking Status: Former smoker second hand exposure: Yes alcohol intake: never substance use type: does not use caffeine: Yes what type of physical activity do you participate in: none seatbelt use: always do you feel safe at home: Yes additional social history: [employer] History 2 Elective abortions Hx Para 1 Spontaneous abortions Hx # Term Pregnancies Ectopic pregnancies Hx # Pregnancies Multiple births # of living children 1 Past Pregnancies Del. Date Name GA/Weeks Outcome Route Bth Weight Gen Labor Lgth Anesthesia Del Locatn Provider FOB 02/25/19 [place] 40 live - full term 8.3lb Male 12 hours ep idural [facility] Delivery Date: 02/25/19 GHTN, decel Sneha Sanderson Visit Details Expected Delivery Route/Plan Labor Preferences- labor support person: Kishan labor intervention preferences: no specific pain management options preferred: epidural cut cord/dad catch: yes : yes PP control planned: depo at 6 weeks or nuvaring discussed possible routes of delivery and associated risks: [] special requests: [] Plans flu vaccine: decline tdap vaccine: declined rhogam: na LARC form signed: declined movement and labor precautions reviewed. Problem list reviewed and updated with the most current plan of care details and appropriate orders placed. Relevant counseling for the gestational age provided. Continue routine care and follow up unless otherwise noted in visit notes/problem list details OB Flowsheet Initial Weight: 181 lb Date -?-?-?-?-?-?-?-?-?-?-?-?- EGA Weight BP Urine Prot -?-?-?-?-?-?-?-?-?-?-?-?- Glucose FHR FuHt Pres Dilation -?-?-?-?-?-?-?-?-?-?-?-?- Effaced St Visit Note 09/19/20 -?-?-?-?-?-?-?-?-?-?-?-?- 10w 1d 181 lb 4 oz (+4 oz) 110/84 -?-?-?-?-?-?-?-?-?-?-?--?- 157 -?-?-?-?-?-?-?-?-?-?-?-?- GP - CRL 29.3mm consistent with JERI of 04/16/21 10/18/20 -?-?-?-?-?-?-?-?-?-?-?-?- 14w 2d 181 lb 2 oz (+2 oz) 132/82 Negative -?-?-?-?-?-?-?-?-?-?-?-?- Negative 145 -?-?-?-?-?-?-?-?-?-?-?-?- GP - no cramping or bleeding. Discussed +carrier for galactosemia - to get tested. Anatomy scan ordered. 10/21/20 -?-?-?-?-?-?-?-?-?-?-?-?- 14w 5d 180 lb 2 oz (-14 oz) 124/80 -?-?-?-?-?-?-?-?-?-?-?-?- -?-?-?-?-?-?-?-?-?-?-?-?- GP - problem vis it for vaginal irritation. Rapid BV, trich, and vaginal culture performed. 11/15/20 -?-?-?-?-?-?-?-?-?-?-?-?- 18w 2d 181 lb (+0 oz) 120/82 Negative -?-?-?-?-?-?-?-?-?-?-?-?- Negative 150 -?-?-?-?-?-?-?-?-?-?-?-?- SM- no vb lof go od fm no ctx 12/13/20 -?-?-?-?-?-?-?-?-?-?-?-?- 22w 2d 184 lb (+3 lb) 100/82 Trace -?-?--?-?-?-?-?-?-?-?-?-?- Negative 150 -?-?-?-?-?-?-?-?-?-?-?-?- SM- no vb lof go od fm no regular ctx discussed anxiety and depression symptoms- start zoloft 01/10/21 -?-?-?-?-?-?-?-?-?-?-?-?- 26w 2d 185 lb 4 oz (+4 lb 4 oz) Trace -?-?-?-?-?-?-?-?-?-?-?-?- Negative 155 26 -?-?--?-?-?-?-?-?-?-?-?-?- GP - no LOF, VB, DFM, ctx. Getting 3rd trimester labs today. Trace protein in urine - CMP and P:C added to labs. now undecided on Estrella for name. 01/22/21 -?-?-?-?-?-?-?-?-?-?-?-?- 28w 0d 189 lb (+8 lb) 116/60 Negative -?-?-?-?-?-?-?-?-?-?-?-?- Negative 140 28 -?-?-?-?-?-?-?-?-?--?-?-?- SM- no vb lof go od fm no regular ctx 02/07/21 -?-?-?-?-?-?-?-?-?-?-?-?- 30w 2d 190 lb (+9 lb) 122/68 Negative -?-?-?-?-?-?-?-?-?-?-?-?- Negative 140 31 -?-?-?-?-?-?-?-?-?-?-?-?- SM- no vb lof go od fm no reuglar ctx, repeat urine protein next visit 02/21/21 -?-?-?-?-?-?-?-?-?-?-?-?- 32w 2d 189 lb (+8 lb) 130/80 Negative -?-?-?-?-?-?-?-?-?-?-?-?- Negative 150 32 -?-?-?-?-?-?-?-?-?-?-?-?- GP - no ctx, LOF , VB, DFM. Occasional cramping. 03/07/21 -?-?-?-?-?-?-?-?-?-?-?-?- 34w 2d 189 lb (+8 lb) 126/82 Negative -?-?-?-?-?-?-?-?-?-?-?-?- Negative 140 35 Cephalic -?-?-?-?-?-?-?-?-?-?-?-?- SM- no vb lof go od fm no regular ctx 03/21/21 -?-?-?-?-?-?-?-?-?-?-?-?- 36w 2d 192 lb 6 oz (+11 lb 6 oz) 134/88 Trace -?-?-?-?-?-?-?-?-?-?-?-?- Negative 140 36 Cephalic 2 -?-?-?-?-?-?-?-?-?-?-?-?- 50 -2 GP - no LO F, VB, DFM, ctx. GBS today. 03/28/21 -?-?-?-?-?-?-?-?-?-?-?-?- 37w 2d 195 lb 8 oz (+14 lb 8 oz) 132/94 Negative -?-?-?-?-?-?-?-?-?-?-?-?- Negative -?-?-?-?-?-?-?-?-?-?-?-?- GP - sent to [facility] for elevated BP, SOLANO, and vision changes. 04/01/21 -?-?-?-?-?-?-?-?-?-?-?-?- 37w 6d 191 lb 12.8 oz (+10 lb 12.8 oz) 146/89 139/92 144/93 139/93 133/86 134/74 15 mg/dl (Negative) H -?-?-?-?-?-?-?-?-?-?-?-?- -?-?-?-?-?-?-?-?-?-?-?-?- NST FHR Rate Baby A Baseline: 130 Variability:: Moderate Accelerations:: 15 x 15 Decelerations:: None NST Reactive:: Yes FHR Category:: Category I Uterine Activity:: q3-5min ROS Eyes Eyes: Reports systems reviewed and no addt'l complaints, except as documented ENT HEENT: Reports systems reviewed and no addt'l complaints, except as documented Cardiovascular Cardiovascular: Reports systems reviewed and no addt'l complaints, except as documented Respiratory/Chest Respiratory/Chest: Reports systems reviewed and no addt'l complaints, except as documented Gastrointestinal Gastrointestinal: Reports systems reviewed and no addt'l complaints, except as documented Genitourinary Genitourinary: Reports systems reviewed and no addt'l complaints, except as documented Musculoskeletal Musculoskeletal: Reports systems reviewed and no addt'l complaints, except as documented Integumentary Integumentary: Reports systems reviewed and no addt'l complaints, except as documented Neurologic Neurologic: Reports systems reviewed and no addt'l complaints, except as documented Psychiatric Psychiatric: Reports systems reviewed and no addt'l complaints, except as documented Endocrine Endocrinology: Reports systems reviewed and no addt'l complaints, except as documented Hematologic/Lymphatic Hematologic/Lymphatic: Reports systems reviewed and no addt'l complaints, except as documented Allergic/Immunologic Allergic/Immunologic: Reports systems reviewed and no addt'l complaints, except as documented Vital Signs Vital Signs Vital Signs: 04/01/21 20:40 04/01/21 20:41 04/01/21 21:04 Temperature 98.1 F Temperature Source Temporal Pulse Rate 69 75 Blood Pressure 146/89 H 139/92 H BP Systolic 146 139 BP Diastolic 89 92 Pulse Ox 98 04/01/21 21:37 04/01/21 22:07 04/01/21 23:26 Temperature 98.1 F Temperature Source Pulse Rate 72 67 Blood Pressure 144/93 H 139/93 H BP Systolic 144 139 BP Diastolic 93 93 Pulse Ox 04/01/21 23:29 04/02/21 01:58 Temperature 97.9 F Temperature Source Pulse Rate 92 77 Blood Pressure 133/86 H 134/74 H BP Systolic 133 134 BP Diastolic 86 74 Pulse Ox 98 98 Weight Weight: 191 lb 12.8 oz Body Mass Index (BMI) 35.0 Physical Exam Const alert, oriented x3, no apparent distress, average body habitus, healthy appearing and well nourished HEENT normocephalic and moist oral mucous membranes Head and Scalp: atraumatic Eyes PERRL and EOMs intact bilaterally Neck full ROM Resp normal respiratory effort, no retractions and no use of accessory muscles Cardio regular rate and regular rhythm GI soft to palpation, non-tender and non-distended Extremity normal to inspection and full ROM Skin no rashes or lesions noted Neuro no focal motor deficits and no sensory deficits noted Psych mental status grossly normal, affect normal, speech normal and activity/motor behavior normal Labs Labs Labs: Blood Type O POSITIVE Antibody Screen NEGATIVE Hct 30.1 % (37-47) L Hgb 9.4 g/dL (12.0-15.0) L Rubella IgG Antibody Reactive (Nonreactive) Hep Bs Antigen Non-Reactive (Nonreactive) Neisseria gonorrhoeae DNA (CHRISTI) Negative (Negative) HIV 1&2 Antibody Non-Reactive (Nonreactive) C.trachomatis DNA (PCR) Negative (Negative) Glucose 1 Hr 50 gm 124 mg/dL (70-140) Rhogam given: No Miscellaneous Test Assessment & Plan (1) Encounter for induction of labor: PLAN: Patient presents IOL, plan management for with cytotec/pitocin/AROM. Pain management: plans epidural. GBS positive. Management of any complications: none I have reviewed the [facility] and made any clinically relevant updates. (2) Supervision of other normal : COMMENT: PRR JERI 04/16/21 Girl Estrella PC: [place] Spouse: Kishan (3) : QUALIFIERS: Weeks of gestation: 37 weeks Qualified Code(s): Z3A.37 - 37 weeks gestation of COMMENT: carrier- reviewed. NIPT low risk AFP- negative. nl anatomy. (4) Gestational hypertension: QUALIFIERS: Trimester: third trimester Qualified Code(s): O13.3 - Gestational [-induced] hypertension without significant proteinuria, third trimester COMMENT: in first (5) Carrier of galactosemia: COMMENT: FOB negative (6) Anxiety and depression: COMMENT: melanieoft. encouraged counseling (7) 32 weeks gestation of : COMMENT: electronic covid test ordered 02/19/21 (scheduled 04/11/21 at 1440 HG) (8) Positive GBS test: COMMENT: PCN at delivery (9) Anemia affecting : COMMENT: Hgb 8.8 on 03/28/21. Start iron infusions
[2021-04-02] MEDS: Oxytocin 30 units/NS 500 ml 30 UNITS/500 ML IV.SOLN IV (03:53)
[2021-04-02] MEDS: Lactated Ringers 1,000 ML 200 ML IV ×2 (03:56→09:53)
[2021-04-02] MEDS: Lactated Ringers 500 ML 999 ML IV (04:55)
[2021-04-02] MEDS: fentaNYL-bupivacaine (epidural) 100 ML BAG EPIDURAL (06:04)
[2021-04-02] MEDS: Oxytocin 30 units/NS 500 ml 30 UNITS/500 ML IV.SOLN 334 UNITS IV (10:17)
--- NOTE | 2021-04-02 10:32 | OP.PCM_ITS ---
Assessment & Plan (1) Vaginal delivery: (2) Encounter for induction of labor: (3) Supervision of other normal : COMMENT: PRR JERI 04/16/21 Girl Estrella PC: [place] Spouse: Kishan (4) : QUALIFIERS: Weeks of gestation: 37 weeks Qualified Code(s): Z3A.37 - 37 weeks gestation of COMMENT: carrier- reviewed. NIPT low risk AFP- negative. nl anatomy. (5) Gestational hypertension: QUALIFIERS: Trimester: third trimester Qualified Code(s): O13.3 - Gestational [-induced] hypertension without significant proteinuria, third trimester COMMENT: in first , BPs elevated starting at 38 weeks, admitted for IOL 04/02 (6) Carrier of galactosemia: COMMENT: FOB negative (7) Anxiety and depression: COMMENT: vanesa. encouraged counseling (8) 32 weeks gestation of : COMMENT: electronic covid test ordered 02/19/21 (scheduled 04/11/21 at 1440 HG) (9) Positive GBS test: COMMENT: PCN at delivery (10) Anemia affecting : COMMENT: Hgb 8.8 on 03/28/21. Start iron infusions Maternal Data Information JERI Calculator Estimated Delivery Date Method Current WG Current Estimate 04/16/21 Ultrasound #1 38w 0d Other Estimates 04/09/21 LMP (Uncertain) 39w 0d Vaginal Delivery Maternal Presentation Maternal Presentation: Medically Indicated Induction Maternal Presentation: 25-year-old G3, P1 at 38 weeks admitted for induction of labor for gestational. Patient was induced with Cytotec followed by Pitocin. Type of Induction: Pitocin and Cytotec Medical Reason for Induction: Gestational Hypertension Operative Information Date of Procedure: 04/02/21 Pre-Operative Diagnosis: Term , gestational hypertension Post-Operative Diagnosis: Same Surgery / Procedure Performed: Spontaneous Vaginal Delivery Type of Anesthesia: Epidural Drain: Whelan to straight drain Estimated Blood Loss: 200 Findings Description of Procedure: Patient began pushing and delivered the head in the CHAPARRITA presentation. The head was delivered atraumatically and a tight nuchal cord was noted and delivered through. The anterior and posterior shoulders delivered without complication followed by the rest of the infant and the was placed on the maternal abdomen. Delayed cord clamping was employed for approximately 60 seconds. Cord was clamped and cut and gentle traction was applied to the cord and the placenta delivered spontaneously immediately following it was noted to be intact with three-vessel cord. The perineum and vagina were inspected and noted to have no laceration. EBL was 200 cc. Patient and tolerated delivery well. Presentation: Vertex and CHAPARRITA Amniotic Membrane Rupture Type: Artificial Amniotic Fluid Description: Clear Placental Delivery Description: Spontaneous Placenta Disposition: [facility] Cord Vessel Description: 3 Vessels Cord Entanglement: Around neck x 1, tight Nuchal Cord Compression: Without compression A Gender: Female Delayed Cord Clamping: Yes Post Vaginal Delivery Medications Given After Delivery: IV Pitocin Episiotomy Description: None Laceration: None Complication Complications: None Procedures Urinary/Genital [id number]: [id number] Vaginal Delivery+ Care([facility])
[2021-04-02] MEDS: Ondansetron 4 MG/2 ML Vial IV (11:30)
[2021-04-02] MEDS: 0.9% Saline Lock 10 ML Syringe IV (11:30)
[2021-04-02] MEDS: Acetaminophen 650 MG/20 ML UDC 1000 MG PO (20:15)
[2021-04-03] VITALS (8 sets, daily range): BP systolic 133–143; BP diastolic 80–87; PULSE 66–92; RESP 16–18; TEMP 36.2–36.6; O2SAT 96–98
[2021-04-03] MEDS: Acetaminophen 650 MG/20 ML UDC 1000 MG PO (06:55)
--- NOTE | 2021-04-03 07:06 | PN.OBGYN_ITS ---
Subjective Subjective Patient doing well without complaints. Tolerating PO. Ambulating and voiding without difficulty. Feeding well. Denies chest pain, shortness of breath, calf pain/swelling, fevers, chills, lightheadedness. Objective Data Objective Data Vital Signs: Vital Signs Temp Pulse Resp BP Pulse Ox 97.2 F L 66 18 133/86 H 98 04/03/21 04:46 04/03/21 04:46 04/03/21 04:46 04/03/21 04:46 04/03/21 00:45 Oxygen Delivery Method Room Air Weight: 191 lb 12.8 oz Body Mass Index (BMI) 35.0 Intake & Output: Intake and Output for Last 24 Hours 04/01/21 04/02/21 04/03/21 23:59 23:59 23:59 Intake Total 2443.13 / 2443.13 Output Total 1600 / 1600 Balance 843.13 / 843.13 Lab / Micro Data Result Diagrams: 04/01/21 20:55 04/01/21 20:55 Micro: Microbiology 04/02/21 03:20 Mucosa - Nose SARS-CoV-2 Antigen (Rapid) - Final ROS Constitutional Constitutional: Denies fever(s) Cardiovascular Cardiovascular: Denies chest pain, dyspnea or lightheadedness Gastrointestinal Gastrointestinal: Reports abdominal pain; Denies constipation or diarrhea Neurologic Neurologic: Denies dizziness or headache(s) Physical Exam Const alert, oriented x3, no apparent distress, average body habitus, healthy appearing and well nourished HEENT normocephalic Head and Scalp: atraumatic Eyes PERRL and EOMs intact bilaterally Neck full ROM Lymph Lymphatic: no lymphadenopathy noted Resp normal respiratory effort, no retractions and no use of accessory muscles Cardio regular rate GI soft to palpation, non-tender and non-distended Palpation: other Other Details: fundus firm Extremity normal to inspection and no clubbing, cyanosis or edema Skin no rashes or lesions noted Neuro no focal motor deficits and no sensory deficits noted Psych mental status grossly normal, affect normal and speech normal Assessment & Plan (1) Vaginal delivery: PLAN: s/p PPD # 1 1. routine post delivery care 2. breast feeding- support given 3. rh positive 4. rubella immune 5. gHTN - BPs increasing with occasiona 150s/90s, Procardia XL 30mg started tod ay
--- NOTE | 2021-04-03 07:09 | DCINST_ITS ---
Discharge Instructions Diet Discharge Diet: No restrictions Activity Discharge Activity: Return to Normal Activity, May Not Drive (while taking narcotic pain medications.) and May Shower May resume sexual activity in: 4-6 weeks Dressing / Incision Call your doctor if your incision/area has: Continuous Slow Oozing, Sudden Increased Bleeding, Increased Pain/ Swelling, Increased Redness and Foul Smelling Discharge Follow Up Care When: Call to make an appointment with your doctor in 6 weeks. If you had elevated Blood Pressure or 4th degree laceration you will need to be seen in 2 weeks. Test Results: Test results from this visit will be discussed in further detail at your follow-up appointment, if applicable. Discharge Plan Admission Admit Date/Time: 04/01/21 22:05 Primary Reason for Your Visit: Gestational Hypertension Attending Provider: Lu Blake Primary Care Provider: Luh Gilliland NP Instructions Patient Instructions: After a Vaginal , Understanding Preeclampsia Discharge Orders/Prescriptions Prescriptions: New naproxen 250 MG tablet 250 - 500 mg PO Q8H PRN PRN (Reason: MILD PAIN) Qty: 30 RF: 1 Continued PNV-DHA 27 mg iron-1 mg -300 mg capsule 1 cap PO DAILY RF: 0 sertraline [Zoloft] 50 mg tablet 50 mg PO QDAY RF: 0 Referrals / Follow Up: Luh Gilliland NP, PSYCHIATRY TEACHER-[facility] [Primary Care Provider] -
[2021-04-03] MEDS: NIFEdipine 30 MG Tablet PO (07:55)
[2021-04-03] MEDS: Sertraline 50 MG Tablet PO (23:10)
--- NOTE | 2021-04-03 23:27 | NURSING ---
Pt marked that she had thoughts that she would be better off or of hurting herself in some way for several days over the past two weeks on pHQ9. Called the crisis line - crisis line stated they will call pt. Talked to pt about answer - pt stated she must have accidentally marked that option - she stated she does not have any thoughts of hurting herself.
[2021-04-04 03:40] VITALS: BP 141/79; PULSE 77; RESP 16; TEMP 36.9; O2SAT 98
[2021-04-04] MEDS: Naproxen 250 MG Tablet 500 MG PO (04:47)
--- NOTE | 2021-04-04 07:28 | PCM.PN.OB ---
Subjective Subjective Patient doing well without complaints. Tolerating PO. Ambulating and voiding without difficulty. Feeding well. Denies chest pain, shortness of breath, calf pain/swelling, fevers, chills, lightheadedness. Objective Data Objective Data Vital Signs: Vital Signs Temp Pulse Resp BP Pulse Ox 98.4 F 77 16 141/79 H 98 04/04/21 03:40 04/04/21 03:40 04/04/21 03:40 04/04/21 03:40 04/04/21 03:40 Oxygen Delivery Method Room Air Weight: 191 lb 12.8 oz Body Mass Index (BMI) 35.0 Intake & Output: Intake and Output for Last 24 Hours 04/02/21 04/03/21 04/04/21 23:59 23:59 23:59 Intake Total 2443.13 / 2443.13 Output Total 1600 / 1600 Balance 843.13 / 843.13 Lab / Micro Data Result Diagrams: 04/01/21 20:55 04/01/21 20:55 Micro: Microbiology 04/02/21 03:20 Mucosa - Nose SARS-CoV-2 Antigen (Rapid) - Final ROS Constitutional Constitutional: Denies fever(s) Cardiovascular Cardiovascular: Denies chest pain, dyspnea or lightheadedness Gastrointestinal Gastrointestinal: Reports abdominal pain; Denies constipation or diarrhea Neurologic Neurologic: Denies dizziness or headache(s) Physical Exam Const alert, oriented x3, no apparent distress, average body habitus, healthy appearing and well nourished HEENT normocephalic Head and Scalp: atraumatic Eyes PERRL and EOMs intact bilaterally Neck full ROM Lymph Lymphatic: no lymphadenopathy noted Resp normal respiratory effort, no retractions and no use of accessory muscles Cardio regular rate GI soft to palpation, non-tender and non-distended Palpation: other Other Details: fundus firm Extremity normal to inspection and no clubbing, cyanosis or edema Skin no rashes or lesions noted Neuro no focal motor deficits and no sensory deficits noted Psych mental status grossly normal, affect normal and speech normal Assessment & Plan (1) Vaginal delivery: PLAN: s/p PPD # 2 1. routine post delivery care 2. breast feeding- support given 3. rh positive 4. rubella immune 5. Gestational hypertension - BPs 130s-140s/70s-80s on procardia XL 30mg daily
[2021-04-04 08:30] VITALS: BP 136/86; PULSE 69; RESP 16; TEMP 36.4; O2SAT 99
[2021-04-04] MEDS: NIFEdipine 30 MG Tablet PO (10:26)
[2021-04-04 10:29] VITALS: BP 136/83
--- NOTE | 2021-04-04 11:50 | CASEMGMT ---
Social Work Assessment Labor and Delivery Unit Patient Address: [id number] [place] [address] [address], [place] [address] Phone number: [phone] Date of Referral: 04/02/2021; 04/03/2021 Time of Referral: 2253 Referred By: Dr. Blake Date of Intervention: 04/04/2021 Time of Intervention: 1150 Reason for Referral: Maternal history of anxiety and depression, mother taking Zoloft; PHQ 9 score of 9 falling into the mild range of depression, positive score on question #9 with frequency of several days noted. History obtained from: Medical records and mother of baby (MOB) Angela Dixon; father of baby (FOB) Kishan Valenzuela present for part of conversation. Household composition: MOB, FOB and their older son. Home situation is reported as safe and adequate. Patient's parent/guardian status: CAROL is a 25-year-old single female, involved with the FOB for the last 5 years. MOB denies any concerns about abuse, control, or intimidation in this relationship. MOB and FOB now have 2 children together. Mayco Valenzuela (born 02/25/2019), and Karla Valenzuela (born 04/02/2021). Medical History: CAROL is 2, para 1 now 2 after delivering Karla. care started at 10 weeks gestation and regular thereafter. Delivery at 37 weeks. Weight for Karla was 7 pounds 13 ounces. Apgars 8 and 9 at 1 and 5 minutes of life respectively. Educational Status: CAROL has a high school education. Denies any issues with reading, writing, or learning comprehension. Financial Status: CAROL does not currently work outside of the home. FOB works full-time on third shift at [email or web address]. Infant Supplies: MOB reports to have all needed supplies including a safe sleep space in the form of a bassinet and a car seat for the baby. Childcare/Caregiver(s): MOB will be the primary caregiver of this infant, with help from the FOB when he is home. Transportation: MOB reports to have adequate transportation. Programs/Agencies Involved: MOB is involved with job and family services for Medicaid. Reports to have an appointment set at [facility]. Verbally agrees to help me grow referral, and would like both children to be included on the referral. History of counseling at [facility], but not currently. Children Services/Legal Issues: No reported current legal issues. KAREEM does have a history of incarceration for breaking and entering. CAROL reports a history with [facility] children services when Mayco was about 3 to 4 months old. CAROL reports that she got up in the middle of the night and fell over a box while holding the baby which resulted in a skull fracture. Due to the nature of the injury children services became involved, and remained involved for about 6 months. CAROL denies that she was ever charged with any crime, and denies any removal of the child through the courts. CAROL reports there was a safety plan in place for a while and the family had a case plan to work which included counseling. Denies any other children services involvement outside of this 1 episode. Behavioral Health Issues: Mental Health History: CAROL reports a history of depression and anxiety. Is currently prescribed Zoloft and plans to remain on this in the timeframe. Denies any history of suicidal ideations. Identifies positive coping such as counting to 10 and then making herself do what ever it is that CAROL was putting off, taking baths, and focusing on her son. MOB reports that Mayco motivates the MOB in a positive way. PHQ-9: CAROL scored a 9 on the PHQ-9 falling into the mild range of depression. CAROL indicated several days to question #9. MOB reports to this freelance copywriter that CAROL misread the question and thought was answering question #8, which CAROL also identified for several days. CAROL adamantly denies any thoughts of suicide, or that her life would be better off . Identifies her son, and now her daughter as reasons to live. CAROL denies any access to lethal means in the home. Reports that the KAREEM does have a felony on his record and is not allowed to have firearms in the home. Substance Use History: CAROL denies any history of substance use for herself. Does not use tobacco. Family History: MOB family history not discussed. The KAREEM reportedly has a history of heroin abuse, reportedly clean for 4 years and working in a Suboxone program with the treatment provider out of [facility]. Drug Screens: Maternal drug screen negative on 09/19/2020. No further testing completed. Family/Social Stressors: No reported stressors at this time. Support Systems: CAROL reports to have family in the area who are supportive. FOB will be taking 1 month off of work to help with the transition at home. Depression/Shaken Baby/Safe Sleeping information provided and reviewed. ASSESSMENT: Met with the MOB and FOB together, and then privately with the MOB. both parents were polite, calm, cooperative, and willing to engage in conversation with social media director. During the time that FOB was in the room, the FOB was engaged in taking care of the baby and handled the baby appropriately. FOB contributed to the conversation as well, and in an appropriate manner. Reviewed the PHQ-9 depression screen with the MOB. MOB maintains that she is not having any type of suicidal ideation currently or in the last week. MOB actually denied any history of suicidal ideation. MOB does endorse depression, and plans to remain on Zoloft in the timeframe. MOB reports she is considering returning back to counseling and was receptive to social media director providing a list of counseling resources. The FOB was encouraging of the MOB for counseling, that this is a good outlet for support. MOB reports to have all needed supplies for the baby and will have help upon home-going, as the FOB has a up to a month off work if needed. MOB denies any substance use for herself. FOB has reportedly been sober for the last 4 years. Provided the MOB and FOB with a [facility] resource list, as well as a packet on mood and anxiety disorders. Handouts on shaken baby prevention and safe sleeping also provided. MOB and FOB are both willing to have help me grow referral. Safe Plan of Care for related to substance use: MOB denies any substance use for herself. Reports the FOB has been in recovery for the last 4 years and is currently enrolled in a medication assisted treatment program. MOB reports she can tell when the FOB is not sober, and expresses understanding of not allowing the baby to be cared for by anybody who is an active use of substances. PLAN: MOB and infant will discharge home. Resource information for [facility] provided. Help me grow referral to be made. -BRAYDEN Cook, FIRE DEPARTMENT BATTALION CHIEF *Information documented in this assessment generated with [employer]*
[2021-04-04 13:32] VITALS: BP 141/89; PULSE 76; RESP 18; TEMP 36.3; O2SAT 96
--- NOTE | 2021-04-07 15:08 | CASEMGMT ---
Addendum entered and electronically signed by Kelle Upton 04/07/21 15:56: Called [facility] ([facility]) and spoke with Shayla in the intake department. Referral given due to family history of children services and the nature of involvement (refer to original social work assessment for details). Brief maternal and infant histories provided, as well as strengths/referrals in place for family. Anticipate call to be screened out for investigation but documented as information and referral. -MARIANO López Original Note: Social Work Labor and Delivery unit Help me grow referral submitted through the [facility] assisted care web-based referral system. No other services requested or indicated. -MARIANO Cook, CORPORATE ACCOUNT EXECUTIVE. *Information documented in this note generated via [employer] system*
== END 2021-04-04 14:42 | disposition home or self-care (01) | DRG 560 ==
LOC: WPOUT 22:08 → WP 22:08
PROVIDERS: Admitting Provider Obstetrics & Gynecology; PCP Nurse Practitioner Women's Health; Visit Provider Obstetrics & Gynecology
DX: O13.4 Gestational [pregnancy-induced] hypertension without significant proteinuria, complicating childbirth (principal); O99.824 Streptococcus B carrier state complicating childbirth; O69.1XX0 Labor and delivery complicated by cord around neck, with compression, not applicable or unspecified; Z20.822 Contact with and (suspected) exposure to COVID-19; O99.344 Other mental disorders complicating childbirth; F32.9 Major depressive disorder, single episode, unspecified; F41.9 Anxiety disorder, unspecified; Z79.899 Other long term (current) drug therapy; Z87.891 Personal history of nicotine dependence; Z3A.38 38 weeks gestation of pregnancy; Z37.0 Single live birth
CPT/HCPCS: 59025; 59050; 81002; 82565; 82570; 84156; 84450; 84460; 84550; 85027; 85610; 85730; 86850; 86900; 86901; 87426; 99218; J7120; A4216; G0378; J2405